=== PATIENT | female | born 1970 | race Hispanic/Latino ===

== ENCOUNTER 2018-11-30 09:31 | Day surgery (SDC) | payer OTHER ==
[~2018-11-30 09:31] MED LIST: ANCEF/STERILE WATER 2 GM/20 ML 2 GM/20 ML SYRINGE IV NR; NACL 0.9% 1000 ML 1,000 ML IV SCH
[2018-11-30 11:05] LABS: Calcium 9.5 mg/dL (8.4-10.2)
--- NOTE | 2018-11-30 12:20 | Anesthesia Consultation ---
Anesthesia Consult and Med Hx Date of service: 11/30/18 - Airway Anesthetic Teeth Evaluation: Good ROM Head & Neck: Adequate Mental/Hyoid Distance: Adequate Mallampati Class: Class II Intubation Access Assessment: Probably Good - Pulmonary Exam CTA: Yes - Cardiac Exam Cardiac Exam: RRR - Pre-Operative Health Status ASA Pre-Surgery Classification: ASA3 Proposed Anesthetic Plan: General (if MAC not possible), MAC (as per patient request) - Pre-Anesthesia Comment Pre-Anesthesia Comments: Patient indicates a history of delayed awakening after the last surgery - Pulmonary Hx Smoking: Yes - Cardiovascular System Hx Hypertension: Yes Hx Coronary Artery Disease: No - Central Nervous System Hx Neuromuscular Disorder: No - Gastrointestinal Hx Gastroesophageal Reflux Disease: No (rare heartburn without need for medication to control) - Endocrine Hx Renal Disease: Yes Hx End Stage Renal Disease: Yes Hx Thyroid Disease: No - Other Systems Hx Alcohol Use: Yes Hx Substance Use: No
[2018-11-30] MEDS ORDERED: PHENERGAN PO PRN (12:21)
[2018-11-30] MEDS ORDERED: PERCOCET 5/325 PO PRN (12:21)
[2018-11-30] MEDS ORDERED: ZOFRAN IV PRN (12:21)
[2018-11-30] MEDS ORDERED: SUBLIMAZE ONE (12:37)
[2018-11-30] MEDS ORDERED: XYLOCAINE MPF 2% ONE (12:37)
[2018-11-30] MEDS ORDERED: DIPRIVAN 10 MG/ML IV ONE (12:37)
[2018-11-30] MEDS ORDERED: DECADRON IV NR (13:00)
[2018-11-30] MEDS ORDERED: PEPCID IV NR (13:00)
[2018-11-30] MEDS ORDERED: VERSED IV NR (13:00)
[2018-11-30] MEDS ORDERED: MARCAINE-EPI 0.5%-1:200,000 INFILTRATI ONE ×2 (13:42)
[2018-11-30] MEDS ORDERED: HEPARIN 10,000 UNITS/10 ML IV ONE ×2 (13:43)
[2018-11-30] MEDS ORDERED: NACL 0.9% IR ONE (13:44)
[2018-11-30] MEDS ORDERED: NACL 0.9% 500 ML IRRIGATION ONE (13:45)
[2018-11-30] MEDS ORDERED: ZOFRAN IV NR (15:00)
[2018-11-30] MEDS ORDERED: ZOFRAN ONE (17:05)
[2018-11-30] MEDS: DILAUDID IV PRN ×2 (17:15→17:25)
--- NOTE | 2018-11-30 17:27 | Anesthesia Day of Surgery ---
Anesthesia Day of Surgery - Day of Surgery Patient Examined: Yes Patient H&P Reviewed: Yes Patient is NPO: Yes
--- NOTE | 2018-11-30 17:27 | Post Anesthesia Evaluation ---
- Post Anesthesia Evaluation Patient Participated: Yes Airway Patent: Yes Stable Respiratory Function: Yes Temp > 96.8F: Yes Pain Manageable: Yes Adequeate Hydration: Yes Anesthesia Complications: No
[2018-11-30] MEDS ORDERED: NORCO 5/325 ONE (17:29)
--- NOTE | 2018-11-30 17:30 | Operative Report ---
Operative Report Operative Report: Operative note: Date: 11/30/2018 Preoperative diagnosis: Endstage renal disease initiating hemodialysis Postoperative diagnosis: Same. Operation: Left arm AV graft revision Surgeon: Florencia Simmons. Asst.: None Anesthesia: Gen. EBL: Less than 50 mL Findings: AV graft somewhat pulsatile, good flow, radial pulse palpable Indications: Patient had initial placement of left upper symmetry AV graft about a year ago for close initiation of hemodialysis. At that time she did not start dialysis and now at this point and needs to initiate hemodialysis. The graft was with poor flow. She was scheduled to get a fistulogram and possible intervention, however she was found to have venous occlusion just beyond the venous graft anastomosis. I was unable to cross the lesion and schedule her for proximal mobilization of the venous anastomosis. Patient understood all risks, benefits and alternatives of procedure and chose to proceed, signed informed consent. Operative details: Patient was brought to the operating room and placed in supine position with left arm on an arm table. Ultrasound was performed locating axillary vein. Left arm was then prepped and draped in sterile fashion. Timeout was performed and all team members in agreement. First incision was created with 15 blade over upper arm in the medial base of the femoral groove. It was dissected down with electrocautery followed by Metzenbaum scissors.With further dissection axillary vein was identified medial to brachial artery, deep was in fibers of biceps. It was taken on vessel loop. There were multiple branches. Second incision was created with a skin blade and the distal AV graft just before the curve is down to venous anastomosis in a transverse fashion. Was carried down with electrocautery and graft was dissected off. It was taken on vessel loop. 4-7 millimeter Propaten graft was tunneled with large clamp. At this moment patient was given 3000 units of heparin and allowed to circulate for 3 minutes. Proximal and distal controls were gained simultaneously of axillary vein using Duval-Derra clamp. Venotomy was created using 11 blade and extended with Weiner scissors. The graft was beveled and clot. Anastomosis was created using 6-0 Prolene in circumferential fashion. Was flushed before completion. Graft was irrigated using heparinized saline and clamped. The existing graft was after eating proximal and distal control using DeBakey clamps. First the venous portion was sutured shut using 50 C1 Prolene. Then beveled anastomosis was created using 6-0 Prolene in circumferential fashion. Before completion clamps were opened to flush, however there was no forward bleeding from the arterial portion of the graft. I used #3 Rasta for thrombectomy until brisk forward flow was seen. The grafts were again flushed with heparinized saline and anastomosis was completed. Clamps were opened and good flow of the graft was identified. Both anastomoses were checked for hemostasis and repair stitches were placed as needed. Incisions were checked for hemostasis, irrigated. Fibrillar was placed. Incisions were closed in 2 layers with Vicryl and Monocryl. Dermabond was applied. The was good palpable flow in the graft and palpable radial pulse. All counts were correct. Patient tolerated procedure well and was transferred to PACU in stable condition.
--- NOTE | 2018-11-30 17:32 | Short Stay Summary ---
Short Stay Documentation Date of service: 11/30/18 - History H&P: obtained from office - Allergies and Medications Current Medications: Allergies meperidine [From Demerol] Adverse Reaction (Verified 11/30/18 10:00) Rash metoclopramide [From Reglan] Adverse Reaction (Verified 11/30/18 10:00) Itching Home Medications Medication Instructions Recorded Confirmed Last Taken Type Cholecalciferol (Vitamin D3) 1,000 unit PO DAILY 11/30/18 11/30/18 11/29/18 09:00 History Metoprolol 100 mg PO BID 11/30/18 11/30/18 11/30/18 07:00 History amLODIPine 10 mg PO DAILY 11/30/18 11/30/18 11/29/18 12:00 History hydrALAZINE 25 mg PO TID 11/30/18 11/30/18 11/29/18 21:00 History Active Medications Famotidine (Pepcid) 20 mg IV PREOP NR Stop: 12/01/18 12:59 Last Admin: 11/30/18 12:57 Dose: 20 mg Documented by: Hydromorphone HCl (Dilaudid) 0.5 mg IV Q10MIN PRN PRN Reason: Pain , Severe (7-10) Cefazolin Sodium (Ancef/Sterile Water 2 Gm/20 Ml) 2 gm in 20 mls @ 80 mls/hr IV PREOP NR; Protocol Stop: 11/30/18 23:59 Sodium Chloride (Nacl 0.9% 1000 Ml) 1,000 mls @ 42 mls/hr IV DIRECT FERNY Last Admin: 11/30/18 10:40 Dose: 42 mls/hr Documented by: Midazolam HCl (Versed) 2 mg IV PREOP NR Stop: 11/30/18 23:59 Last Admin: 11/30/18 12:48 Dose: 2 mg Documented by: Ondansetron HCl (Zofran) 4 mg IV ONCE PRN PRN Reason: Nausea And Vomiting Ondansetron HCl (Zofran) 4 mg IV PREOP NR Stop: 12/01/18 14:59 Oxycodone/Acetaminophen (Percocet 5/325) 1 tab PO ONCE PRN PRN Reason: Pain, Moderate (4-6) - Brief post op/procedure progress note Date of procedure: 11/30/18 Pre-op diagnosis: AV graft malfunction Post-op diagnosis: same Procedure: Left upper extremity AV graft revision Anesthesia: GETA Findings: Good flow in the graft and palpable radial pulse Surgeon: DANO VINCENT Estimated blood loss: minimal Condition: stable - Disposition Condition at discharge: Good Disposition: DC-01 TO HOME OR SELFCARE Short Stay Discharge Plan Follow up with: SAMUEL VARGAS MD [Primary Care Provider] - 7 Days
--- NOTE | 2018-11-30 17:36 | Short Stay Summary ---
Short Stay Documentation - Allergies and Medications Current Medications: Allergies meperidine [From Demerol] Adverse Reaction (Verified 11/30/18 10:00) Rash metoclopramide [From Reglan] Adverse Reaction (Verified 11/30/18 10:00) Itching Home Medications Medication Instructions Recorded Confirmed Last Taken Type Cholecalciferol (Vitamin D3) 1,000 unit PO DAILY 11/30/18 11/30/18 11/29/18 09:00 History HYDROcodone/ACETAMINOPHEN [[place] 1 each PO Q4-6H PRN #25 tablet 11/30/18 Unknown Rx 5-325 Tablet] Metoprolol 100 mg PO BID 11/30/18 11/30/18 11/30/18 07:00 History amLODIPine 10 mg PO DAILY 11/30/18 11/30/18 11/29/18 12:00 History hydrALAZINE 25 mg PO TID 11/30/18 11/30/18 11/29/18 21:00 History Active Medications Famotidine (Pepcid) 20 mg IV PREOP NR Stop: 12/01/18 12:59 Last Admin: 11/30/18 12:57 Dose: 20 mg Documented by: Hydromorphone HCl (Dilaudid) 0.5 mg IV Q10MIN PRN PRN Reason: Pain , Severe (7-10) Stop: 12/01/18 17:24 Cefazolin Sodium (Ancef/Sterile Water 2 Gm/20 Ml) 2 gm in 20 mls @ 80 mls/hr IV PREOP NR; Protocol Stop: 11/30/18 23:59 Sodium Chloride (Nacl 0.9% 1000 Ml) 1,000 mls @ 42 mls/hr IV DIRECT FERNY Last Admin: 11/30/18 10:40 Dose: 42 mls/hr Documented by: Midazolam HCl (Versed) 2 mg IV PREOP NR Stop: 11/30/18 23:59 Last Admin: 11/30/18 12:48 Dose: 2 mg Documented by: Ondansetron HCl (Zofran) 4 mg IV ONCE PRN PRN Reason: Nausea And Vomiting Ondansetron HCl (Zofran) 4 mg IV PREOP NR Stop: 12/01/18 14:59 Oxycodone/Acetaminophen (Percocet 5/325) 1 tab PO ONCE PRN PRN Reason: Pain, Moderate (4-6) - Disposition Condition at discharge: Good Disposition: DC-01 TO HOME OR SELFCARE Short Stay Discharge Plan Diet: renal Wound: open to air Special Instructions: no heavy lifting Follow up with: SAMUEL VARGAS MD [Primary Care Provider] - 7 Days DANO VINCENT DO [Staff Physician] - 14 Days Prescriptions: HYDROcodone/ACETAMINOPHEN [[place] 5-325 Tablet] 1 each PO Q4-6H PRN #25 tablet PRN Reason: Pain , Severe (7-10)
[2018-12-02 11:47] VITALS: BP 126/74
== END 2018-11-30 09:32 | disposition home or self-care (01) ==
LOC: OR 09:31
PROVIDERS: ATTEND Surgery Vascular Surgery
DX: T82.868A Thrombosis due to vascular prosthetic devices, implants and grafts, initial encounter (principal); I12.0 Hypertensive chronic kidney disease with stage 5 chronic kidney disease or end stage renal disease; N18.6 End stage renal disease; K21.9 Gastro-esophageal reflux disease without esophagitis; Z88.8 Allergy status to other drugs, medicaments and biological substances; Z79.01 Long term (current) use of anticoagulants; Z79.899 Other long term (current) drug therapy; Z87.891 Personal history of nicotine dependence; Z72.89 Other problems related to lifestyle; Y83.8 Other surgical procedures as the cause of abnormal reaction of the patient, or of later complication, without mention of misadventure at the time of the procedure; Y92.89 Other specified places as the place of occurrence of the external cause
CPT/HCPCS: 36833; 80048; C1757; C1768; J0690; J1170; J1644; J2250; J2405; J2704; J3010; J7030; J7040; Q0169

== ENCOUNTER 2018-12-13 07:40 | Day surgery (SDC) | payer OTHER ==
[2018-12-13] MEDS ORDERED: HEPARIN 10,000 UNITS/10 ML ONE (10:47)
[2018-12-13] MEDS: ANCEF/STERILE WATER 2 GM/20 ML 2 GM/20 ML SYRINGE IV ONE ×2 (11:20→11:46)
[2018-12-13] MEDS: NACL 0.9% 500 ML 500 ML ONE ×2 (11:20→11:38)
[2018-12-13] MEDS: HEPARIN/NS 5000 UNIT/500ML(CATH LAB) 1,000 ML IR ONE ×2 (11:20→11:47)
[2018-12-13] MEDS: VERSED ONE ×11 (11:29→13:15)
[2018-12-13] MEDS: SUBLIMAZE ONE ×10 (11:29→13:15)
[2018-12-13] MEDS: XYLOCAINE 2% INFILTRATI ONE ×3 (11:29→12:05)
--- NOTE | 2018-12-13 13:37 | Operative Report ---
Operative Report Operative Report: Operative note: Date: 12/13/2018 Preoperative diagnosis: Clotted left arm AV access Postoperative diagnosis: Same. Operation: Left AV graft declot Surgeon: Florencia Simmons. Asst.:. None Anesthesia: local with moderate sedation EBL: Minimal Findings: Severe stenosis at the venous anastomotic site. Indications: 48-year-old female had creation of AV graft about a year ago and now with presenting issue dialysis. She had revision of her AV graft recently and clotted shortly after discharge. She was discussed risks, benefits and alternatives of performing percutaneous thrombectomy. Patient understood and signed informed consent. Operative details: Patient was brought to the labeling machine operator and placed in supine position with left arm extended on the support table. Timeout was performed. AV graft was accessed with micropuncture in the direction toward the anus anastomosis. After local anesthetic and exchanged the micropuncture sheath. Bentson wire was inserted into the SVC and micropuncture sheath was exchanged to a 7 [place] access sheath and flushed. Bentson wire was unable to be maneuvered through the venous anastomosis, vertebral catheter was advanced and the wire was changed to glide advantage. That was able to be maneuvered through the anastomotic narrowing and was diff iculty followed by a vertebral catheter. The venogram was performed and showed patent SVC innominate vein left and subclavian. Patient was heparinized with 5000 units of heparin. Initially I used 8 x 80 balloon and inflated for more than a minute at the perianastomotic stenosis and that was also inflated throughout the graft. I then changed the wire V18 and deployed by 8x5 Viabahn at the site of perianastomotic narrowing. Then treratola was used for clot maceration. That was suctioned out. Another access was gained toward arterial site was micropuncture needle after injection of local anesthetic and exchanged the micropuncture sheath. The Glidewire and vertebral catheter was used to maneuver prior to the proximal brachial artery. Then injection of vertebral catheter in the arterial side showed some amount of clot around the arterial anastomosis. A few swipes of the prior Rasta was performed with some result. I also used a 6 x 40 balloon for treatment of perianastomotic arterial narrowing. Then couple of more swipes of the Rasta performed. That showed some residual clot. The latest 5 x 40 balloon and inflated that was good result. Then vertebral cath injection in the brachial artery showed good graft patency. It felt to have good thrill. I then performed again inflation of balloon. Venous portion by 8x 80 with good result. Good thrill was palpated At this point both sheath were removed and chromic stitch done. Good thrill was palpated. Patient tolerated procedure well and was transferred to PACU in stable condition.
--- NOTE | 2018-12-13 13:40 | Short Stay Summary ---
Short Stay Documentation Date of service: 12/13/18 - History H&P: obtained from office - Allergies and Medications Current Medications: Allergies morphine Allergy (Verified 12/13/18 08:03) Itching meperidine [From Demerol] Adverse Reaction (Verified 11/30/18 10:00) Rash metoclopramide [From Reglan] Adverse Reaction (Verified 11/30/18 10:00) Itching Home Medications Medication Instructions Recorded Confirmed Last Taken Type Cholecalciferol (Vitamin D3) 1,000 unit PO DAILY 11/30/18 12/13/18 12/12/18 History 1 tab HYDROcodone/ACETAMINOPHEN [[place] 1 each PO Q4-6H PRN #25 tablet 11/30/18 12/13/18 Unknown Rx 5-325 Tablet] Metoprolol 100 mg PO BID 11/30/18 12/13/18 12/13/18 History 1 tab amLODIPine 50 mg PO DAILY 11/30/18 12/13/18 12/12/18 History 1 tab hydrALAZINE 25 mg PO TID 11/30/18 12/13/18 12/12/18 History 1 tab - Brief post op/procedure progress note Date of procedure: 12/13/18 Pre-op diagnosis: clotted left AV graft Post-op diagnosis: same Procedure: Left AV graft declot Anesthesia: MAC Findings: Severe narrowing at the venous anastomotic site Surgeon: DANO VINCENT Estimated blood loss: none Condition: stable - Disposition Condition at discharge: Good Disposition: DC-01 TO HOME OR SELFCARE Short Stay Discharge Plan Diet: renal Wound: open to air Follow up with: SAMUEL VARGAS MD [Primary Care Provider] - 7 Days
[2018-12-13] MEDS ORDERED: DILAUDID ONE (13:48)
[2018-12-13] MEDS ORDERED: DILAUDID IV ONE (13:49)
[2018-12-13 15:34] VITALS: BP 144/78
== END 2018-12-13 14:40 | disposition home or self-care (01) ==
LOC: CATHLABREC 07:40
PROVIDERS: ATTEND Surgery Vascular Surgery
DX: T82.868A Thrombosis due to vascular prosthetic devices, implants and grafts, initial encounter (principal); I12.0 Hypertensive chronic kidney disease with stage 5 chronic kidney disease or end stage renal disease; N18.6 End stage renal disease; K21.9 Gastro-esophageal reflux disease without esophagitis; D64.9 Anemia, unspecified; Z88.5 Allergy status to narcotic agent; Z79.899 Other long term (current) drug therapy; Z87.891 Personal history of nicotine dependence; Z98.51 Tubal ligation status; Z90.710 Acquired absence of both cervix and uterus; Z72.89 Other problems related to lifestyle; Z98.890 Other specified postprocedural states; Z98.891 History of uterine scar from previous surgery; Z88.8 Allergy status to other drugs, medicaments and biological substances; Y84.8 Other medical procedures as the cause of abnormal reaction of the patient, or of later complication, without mention of misadventure at the time of the procedure; Y92.89 Other specified places as the place of occurrence of the external cause
CPT/HCPCS: 36415; 36905; 84132; 96374; 99156; 99157; C1725; C1751; C1757; C1769; C1874; C1894; J0690; J1170; J1644; J2250; J3010; J7040; 36906; Q9967